=== PATIENT | female | born 1960 ===

== ENCOUNTER 2024-04-03 08:39 | Day surgery (SDC) | payer OTHER ==
[~2024-04-03] VITALS: Ht 162.6 cm; Wt 69.7 kg
[~2024-04-03 08:39] MED LIST: Lactated Ringer's 1,000 ML IV ONE; propofoL 50 ML IV ONE
[2024-04-03] MEDS ORDERED: METOPROLOL SUCC25 MG (09:00)
[2024-04-03] MEDS ORDERED: ROSUVASTATIN CA10 MG (09:00)
[2024-04-03] MEDS ORDERED: ASPI81CH (09:00)
[2024-04-03] MEDS ORDERED: Lactated Ringer's 1,000 ML IV ONE (09:45)
== END 2024-04-03 10:56 | disposition home or self-care (01) ==
LOC: ORSCSDS 08:39
PROVIDERS: Specialist
PROC: 0DB58ZX Excision of Esophagus, Via Natural or Artificial Opening Endoscopic, Diagnostic (ICD-10-PCS; principal; 2024-04-03 09:45)
PROC: 0D758ZZ Dilation of Esophagus, Via Natural or Artificial Opening Endoscopic (ICD-10-PCS; principal; 2024-04-03 09:45)
PROC: 0DB68ZX Excision of Stomach, Via Natural or Artificial Opening Endoscopic, Diagnostic (ICD-10-PCS; principal; 2024-04-03 09:45)
DX: R13.10 Dysphagia, unspecified (principal); K59.00 Constipation, unspecified; R63.4 Abnormal weight loss; K44.9 Diaphragmatic hernia without obstruction or gangrene; L53.9 Erythematous condition, unspecified; E78.5 Hyperlipidemia, unspecified; E11.9 Type 2 diabetes mellitus without complications; Z86.0100 Personal history of colon polyps, unspecified; Z90.49 Acquired absence of other specified parts of digestive tract; Z79.82 Long term (current) use of aspirin; Z79.899 Other long term (current) drug therapy
CPT/HCPCS: 88305; 88342; C1769; J2704; J7120